=== PATIENT | female | born 2000 | race Caucasian/White ===

== ENCOUNTER 2021-11-06 01:44 | Emergency (ER) | payer OTHER, MEDICAID, SELFPAY ==
[2021-11-06 01:48] VITALS: BP 134/72; PULSE 76; RESP 17; TEMP 36; O2SAT 97; BMI 27.4
--- NOTE | 2021-11-06 01:53 | CTR_ITS ---
PROCEDURE INFORMATION: Exam: CT Abdomen And Pelvis With Contrast Exam date and time: 11/06/2021 2:58 AM Age: 21 years old Clinical indication: Abdominal pain; Localized; Right lower quadrant (rlq); Additional info: Rlq pain TECHNIQUE: Imaging protocol: Computed tomography of the abdomen and pelvis with contrast. Radiation optimization: All CT scans at this facility use at least one of these dose optimization techniques: automated exposure control; mA and/or kV adjustment per patient size (includes targeted exams where dose is matched to clinical indication); or iterative reconstruction. Contrast material: OMNI 350; Contrast volume: 90 ml; Contrast route: INTRAVENOUS (IV); COMPARISON: US Abdomen* [id number] 05/10/2018 9:36 PM RADIATION DOSE METRICS: Total DLP (mGy-cm): 1170.33 FINDINGS: Lungs: The lung bases are clear. No effusion Liver: Normal. No mass. Gallbladder and bile ducts: No wall thickening, pericholecystic fluid or stones. Pancreas: Normal. No ductal dilation. Spleen: Normal. No splenomegaly. Adrenal glands: Normal. No mass. Kidneys and ureters: 4 mm mildly obstructing right UVJ stone. Stomach and bowel: Unremarkable. No obstruction. No mucosal thickening. Appendix: No evidence of appendicitis. Intraperitoneal space: Unremarkable. No free air. No significant fluid collection. Vasculature: Unremarkable. No abdominal aortic aneurysm. Lymph nodes: Unremarkable. No enlarged lymph nodes. Urinary bladder: Unremarkable as visualized. Reproductive: Unremarkable as visualized. Bones/joints: Unremarkable. No acute fracture. Soft tissues: Unremarkable. CT/CT abdomen pelvis w con* [id number] IMPRESSION: 4 mm mildly obstructing right UVJ stone.
--- NOTE | 2021-11-06 01:54 | ED_ITS ---
HPI - Abdominal Pain General: Chief Complaint: Abdominal Pain Stated Complaint: severe right side abdominal pain Time Seen by Provider: 11/06/21 01:50 Source: patient Mode of arrival: ambulatory Limitations: no limitations History of Present Illness: 21-year-old female who states that she has been having right lower quadrant abdominal pain that started roughly 6 hours ago. States that its gradually worsened since then states the pain is currently sharp in nature and rates it a 7 out of 10. She has had some nausea as well pain is worse with movement or palpation. She denies any fevers. Denies any radiation of pain Associated Symptoms: Reports nausea; Denies chills, dysuria and fever(s) Review of Systems Const: Denies: fever(s), chills, body aches or change in appetite Eyes: Denies: blurry vision or eye discomfort ENMT: Denies: throat pain or dental pain Card: Denies: chest pain Resp: Denies: dyspnea GI: Reports: abdominal pain and nausea : Denies: dysuria Musc: Denies: neck pain or back pain Skin/Breast: Denies: rash Neuro: Denies: headache(s) Psych: Denies: depression Naveed/Lymph: Denies: easy bruising All/Imm: Denies: urticaria PFSH ED PFSH: Medical History (Updated 11/06/21 @ 04:11 by Lilia Florentino MD) No pertinent past medical history Social History (Updated 11/06/21 @ 01:54 by Lilia Florentino MD) Substance/Drug Use: never Physical Exam Const: COMMON NORMALS: no acute distress, patient oriented x3 and healthy appearing HENMT: COMMON NORMALS: normocephalic and atraumatic HEAD & SCALP: normocephalic and atraumatic Eye: COMMON NORMALS: Equal, round and reactive pupils present and EOMs intact bilaterally PUPIL: Yes Equal, round and reactive pupils present Neck/C-Spine: COMMON NORMALS: full ROM and supple Chest: COMMONS NORMALS: normal inspection of the chest and normal palpation of entire chest wall Resp: COMMON NORMALS: normal respiratory effort, No retractions, No use of accessory muscles and clear to auscultation bilaterally AUSCULTATION: clear to auscultation bilaterally Cardio: COMMON NORMALS: regular rate, regular rhythm and No murmurs present (Cardio) RATE: regular rate RHYTHM: regular rhythm GI: COMMON NORMALS: Normal to inspection, nondistended, normoactive bowel sounds present, Soft to palpation and no masses PALPATION: Yes Soft to palpation and Yes Tenderness to palpation present (GI) Details: RLQ Extremity: COMMON NORMALS: normal to inspection and full ROM Neuro: COMMON NORMALS: patient oriented x3, moves all extremities and no focal motor deficits Psych: COMMON NORMALS: mental status grossly normal, Normal thought process present and cooperative THOUGHT PROCESS: Normal thought process present Skin: COMMON NORMALS: no rashes or lesions noted and no wounds GENERAL SKIN EXAM: no rashes or lesions noted Course Vital Signs: Vital signs: Vital Signs Temperature 96.8 F L 11/06/21 01:48 Pulse Rate 78 11/06/21 03:59 Respiratory Rate 18 11/06/21 03:59 Blood Pressure 135/84 11/06/21 03:59 Pulse Oximetry 96 11/06/21 03:59 MDM - Abdominal Pain Medical Decision Making Patient presents with kidney stone likely causing her pain and her pains improved here she should be able to pass the stone. We will get her follow-up with urology she is to return if worsening she understands agrees to plan. Lab Data : 11/06/21 02:10 11/06/21 02:10 Labs/Radiology: Radiology Impressions Abdomen/Pelvis CT 11/06/21 01:53 IMPRESSION: 4 mm mildly obstructing right UVJ stone. Laboratory Results WBC 8.7 10^3/uL (4.0-10.0) 11/06/21 02:10 RBC 4.80 10^6/uL (4.1-5.3) 11/06/21 02:10 Hgb 14.1 g/dL (11.5-15.3) 11/06/21 02:10 Hct 40.4 % (37.0-47.0) 11/06/21 02:10 MCV 84.2 fl (81-99) 11/06/21 02:10 MCH 29.4 pg (28.0-34.0) 11/06/21 02:10 MCHC 34.9 g/dL (30.0-36.0) 11/06/21 02:10 RDW 12.9 % (12.1-15.1) 11/06/21 02:10 Plt Count 221 10^3/cmm (130-400) 11/06/21 02:10 MPV 11.7 fL (7.4-10.4) H 11/06/21 02:10 Neut % (Auto) 65.7 % 11/06/21 02:10 Lymph % (Auto) 25.8 % 11/06/21 02:10 [place] % (Auto) 6.4 % 11/06/21 02:10 Eos % (Auto) 1.3 % 11/06/21 02:10 Baso % (Auto) 0.5 % 11/06/21 02:10 Neut # (Auto) 5.74 10^3/uL (1.8-7.7) 11/06/21 02:10 Lymph # (Auto) 2.3 10^3/uL (0.8-4.8) 11/06/21 02:10 [place] # (Auto) 0.6 10^3/uL (0.2-0.9) 11/06/21 02:10 Eos # (Auto) 0.1 10^3/uL (0.0-0.8) 11/06/21 02:10 Baso # (Auto) 0.0 10^3/uL (0.0-0.1) 11/06/21 02:10 Nucleated RBC % (auto) 0 % 11/06/21 02:10 Nucleated RBCs # 0.0 /100WBC 11/06/21 02:10 Sodium 140 mmol/L (136-145) 11/06/21 02:10 Potassium 3.6 mmol/L (3.5-5.1) 11/06/21 02:10 Chloride 105 mmol/L (98-107) 11/06/21 02:10 Carbon Dioxide 21 mmol/L (22-29) L 11/06/21 02:10 Anion Gap 17.6 (5-19) 11/06/21 02:10 BUN 14 mg/dL (6-20) 11/06/21 02:10 Creatinine 0.5 mg/dL (0.5-0.9) 11/06/21 02:10 GFR Calculation 155.7 mL/min (90-130) H 11/06/21 02:10 Glucose 116 mg/dL (65-115) H 11/06/21 02:10 Calculated Osmolality 291 mOsm/kg (285-295) 11/06/21 02:10 Calcium 8.9 mg/dL (8.5-10.5) 11/06/21 02:10 Total Bilirubin 0.3 mg/dL (0.15-1.2) 11/06/21 02:10 AST 12 U/L (0-32) 11/06/21 02:10 ALT 17 U/L (0-33) 11/06/21 02:10 Alkaline Phosphatase 97 IU/L (35-105) 11/06/21 02:10 Total Protein 7.0 g/dL (6.6-8.7) 11/06/21 02:10 Albumin 4.3 g/dL (3.5-5.2) 11/06/21 02:10 Globulin 2.7 g/dL (1.3-4.6) 11/06/21 02:10 Lipase 17 U/L (13-60) 11/06/21 02:10 HCG, Qual Negative (Negative) 11/06/21 02:10 Urine Color Yellow (Yellow) 11/06/21 02:10 Urine Appearance Hazy (CLEAR) A 11/06/21 02:10 Urine pH 5 (5-7) 11/06/21 02:10 Ur Specific [place] 1.030 (1.005-1.030) 11/06/21 02:10 Urine Protein Neg (Negative) 11/06/21 02:10 Urine Glucose (UA) Norm (Normal) 11/06/21 02:10 Urine Ketones Negative (Negative) 11/06/21 02:10 Urine Blood 3+ (Negative) H 11/06/21 02:10 Urine Nitrate Negative (Negative) 11/06/21 02:10 Urine Bilirubin Neg (Negative) 11/06/21 02:10 Urine Urobilinogen Norm mg/dL (Negative) 11/06/21 02:10 Ur Leukocyte Esterase Negative (Negative) 11/06/21 02:10 Urine RBC Too numerous to cnt /hpf (0-2) H 11/06/21 02:10 Urine WBC 0-4 /hpf (0-5) H 11/06/21 02:10 Ur Squamous Epith Cells 15-25 /hpf (0-5) H 11/06/21 02:10 Amorphous Sediment Not Reportable 11/06/21 02:10 Urine Bacteria Trace /hpf (NONE) 11/06/21 02:10 Urine Mucus 1+ /hpf 11/06/21 02:10 Discharge Plan Discharge Patient Disposition: Home Clinical Impression: Kidney stone Prescriptions: New hydrocodone-acetaminophen 5-325 mg tablet 1 tab PO Q6H PRN (Reason: pain) Qty: 14 0RF ondansetron 4 mg tablet,disintegrating 4 mg PO Q6H PRN (Reason: nausea and vomiting) Qty: 14 0RF Discharge Orders: Discharge ED (Routine); Ordered 11/06/21 Ordered By: Lilia Florentino Referrals: Celena Flores NP [Referring] - Prosper Jenkins MD [Physician] - 1-3 days Discharge Diet: Advance as tolerated Discharge Activity: Resume usual activity Patient Instructions: Kidney Stones (ED), Opioid Safety Coding Level of Care Code ED Parts Interpreter for Chg Fwd Exam Comprehensive
[2021-11-06 02:13] VITALS: RESP 18
[2021-11-06] MEDS: sodium chloride 0.9% 1,000 ML 999 ML IV (02:13)
[2021-11-06] MEDS: ondansetron 2 mg/ML SDV 2 mL 4 MG IVP (02:13)
[2021-11-06] MEDS: morphine 4 mg/mL SDV 1 mL IVP (02:13)
[2021-11-06 02:29] LABS: Basophils % 0.5 %; Eosinophils # 0.1 10^3/uL (0.0-0.8); Eosinophils % 1.3 %; Hematocrit 40.4 % (37.0-47.0); Hemoglobin 14.1 g/dL (11.5-15.3); Lymphocytes # 2.3 10^3/uL (0.8-4.8); Lymphocytes % 25.8 %; Mean Corpuscular HGB Conc 34.9 g/dL (30.0-36.0); Mean Corpuscular Hemoglobin 29.4 pg (28.0-34.0); Mean Corpuscular Volume 84.2 fl (81-99); Mean Platelet Volume 11.7 fL (7.4-10.4); Monocytes # 0.6 10^3/uL (0.2-0.9); Monocytes % 6.4 %; Neutrophils # 5.74 10^3/uL (1.8-7.7); Neutrophils % 65.7 %; Nucleated Red Blood Cells % 0 %; Platelet Count 221 10^3/cmm (130-400); Red Cell Distribution Width 12.9 % (12.1-15.1); White Blood Count 8.7 10^3/uL (4.0-10.0)
[2021-11-06 02:39] LABS: Add Urine Culture? No; Add Urine Microscopic? YES; Bacteria Urine TRACE /hpf; Bilirubin Urine Neg (Negative); Blood Urine 3+ (Negative); Glucose Urine UA Norm (Normal); Ketones Urine Negative (Negative); Leukocyte Esterase Urine Negative (Negative); Mucus Urine 1+ /hpf; Nitrate Urine Negative (Negative); Protein Urine Neg (Negative); RBC Urine TOO NUMEROUS TO CNT /hpf (0-2); Squamous Epithelial Cell Urine 15-25 /hpf (0-5); Urine Appearance Hazy (CLEAR); Urine Color Yellow (Yellow); Urobilinogen Urine Norm (Negative); WBC Urine 0-4 /hpf (0-5); pH Urine 5 (5-7)
[2021-11-06 02:41] LABS: HCG, Serum Qual Negative (Negative)
[2021-11-06 02:45] LABS: Alanine Aminotransferase 17 U/L (0-33); Albumin Level 4.3 g/dL (3.5-5.2); Alkaline Phosphatase 97 IU/L (35-105); Anion Gap 17.6 (5-19); Aspartate Amino Transferase 12 U/L (0-32); Blood Urea Nitrogen 14 mg/dL (6-20); Calcium 8.9 mg/dL (8.5-10.5); Carbon Dioxide 21 mmol/L (22-29); Chloride 105 mmol/L (98-107); Globulin 2.7 g/dL (1.3-4.6); Glomerular Filtration Rate 155.7 mL/min (90-130); Glucose 116 mg/dL (65-115); Lipase 17 U/L (13-60); Osmolality Calculated 291 mOsm/kg (285-295); Potassium 3.6 mmol/L (3.5-5.1); Sodium 140 mmol/L (136-145); Total Bilirubin 0.3 mg/dL (0.15-1.2)
[2021-11-06 02:53] VITALS: RESP 18
[2021-11-06] MEDS: HYDROmorphone 1 mg/mL INJ 1 mL IVP (02:53)
[2021-11-06] MEDS: iohexol 300 mg/mL 100 mL Btl IV (03:20)
[2021-11-06 03:59] VITALS: BP 135/84; PULSE 78; RESP 18; O2SAT 96
[2021-11-06 04:23] VITALS: BP 137/80; PULSE 95; RESP 20; O2SAT 95
--- NOTE | 2021-11-06 15:59 | DCPLANNER ---
Addendum entered by Rae Salgado 11/25/21 09:53: Patient had a follow up appointment scheduled for 11.13.[address] Jenkins at urology - patient did not attend appointment. Original Note: manager medical affairs had message to schedule a follow up appointment for patient with urology. manager medical affairs sent patients information to the front office staff at urology. Patients information will be printed and reviewed. Clinic will call patient with appointment information.
== END 2021-11-06 04:24 | disposition home or self-care (01) ==
PROVIDERS: Emergency Provider Emergency Medicine
DX: N20.0 Calculus of kidney (principal)
CPT/HCPCS: 74177; 80053; 81001; 83690; 84703; 85025; 96361; 96374; 96375; 99284; J1170; J2270; J2405; J7030; Q9967